=== PATIENT | male | born 1940 | race Caucasian/White ===

== ENCOUNTER 2023-11-24 12:20 | Emergency (ER) | payer OTHER ==
[~2023-11-24] VITALS: Ht 177.8 cm; Wt 104.3 kg
[2023-11-24 12:47] VITALS: BP 160/78; PULSE 87; RESP 18
[2023-11-24 13:18] LABS: INFLUENZA TYPE A Negative For Type A (NEGATIVE); INFLUENZA TYPE B Negative For Type B (NEGATIVE)
[2023-11-24 13:29] LABS: SARS-CoV-2, RNA, NAAT POSITIVE SARS CoV-2 (NEGATIVE)
[2023-11-24] MEDS ORDERED: NIRM1TAB5 PO (14:36)
[2023-11-24] MEDS ORDERED: D-ME355L6 PO (14:36)
== END 2023-11-24 14:45 | disposition home or self-care (01) ==
LOC: EDH 12:20
DX: U07.1 COVID-19 (principal); I10 Essential (primary) hypertension
CPT/HCPCS: 71045; 87635; 87804